=== PATIENT | male | born 1955 | race Caucasian/White ===

== ENCOUNTER → 2018-07-14 | Outpatient (CLI) | payer OTHER | LOC: COL.LAB 15:36 | DX: Z01.812 Encounter for preprocedural laboratory examination (principal) ==

== ENCOUNTER 2018-07-15 16:23 | Inpatient (IN) | payer OTHER ==
[~2018-07-15] VITALS: Ht 190.5 cm; Wt 92.5 kg
[2018-08-12] VITALS (12 sets, daily range): BP systolic 94–131; BP diastolic 50–81; PULSE 54–77; TEMP 97–98.7
[2018-08-12] MEDS ORDERED: LIPITOR 10MG10 MG PO (02:00)
[2018-08-12] MEDS ORDERED: CIALIS5 MG PO (02:00)
[2018-08-12] MEDS ORDERED: CELEBREX 200MG200 MG PO (02:00)
[2018-08-12] MEDS ORDERED: PRILOSEC 20MG20 MG PO (02:01)
[2018-08-12] MEDS ORDERED: ZANTAC 150MG T150 MG PO (02:01)
[2018-08-12] MEDS ORDERED: MULTI VITAMINS1 TAB PO (05:53)
--- NOTE | 2018-08-12 06:15 | NUR ---
arrived on unit at 0530, prepped for surgery without incident, explanation given for going to and returning from surgery to patient and his , verbalizes understanding
--- NOTE | 2018-08-12 10:50 | NUR ---
returned to room from PACU per bed, awake and alert, IV infusing and placed on pump at 125ml/hr, O2 on at 2L/NC, rico cath patent draining clear yellow urine, SCDS and DEBORAH hose on bilaterally, brace to left knee with ice on, has sensation to feet and is able to wiggle toes but still states has some tingling, full assessment completed, see intervenitons for further info, at bedside
--- NOTE | 2018-08-12 11:15 | NUR ---
rests between checks, takes scheduled tylenol
--- NOTE | 2018-08-12 12:00 | NUR ---
arests quietly and dozes between checks, awakens easily, states he just feels funny, when questioned stated he was feeling a little dizzy and aching to knee, medicated with roxicodone 10mg po, given crackers to eat to decrease chance of nausea
--- NOTE | 2018-08-12 13:00 | NUR ---
resting in bed with eyes closed
--- NOTE | 2018-08-12 13:30 | NUR ---
Dr Tovar in to see chandan
--- NOTE | 2018-08-12 14:15 | NUR ---
continues to c/o pain, brace loosened, medicated with morphine 3mg slow IV and also zofran 4mg to decrease chance of nausea, sitting up in bed to try and eat something, has some shivering and provided warm blanket, at bedside
--- NOTE | 2018-08-12 14:30 | NUR ---
had soup and tolerated well, states morphine has helped pain in left knee and thigh, will try now to take a nap
--- NOTE | 2018-08-12 16:29 | NUR ---
had a nap and is now awake and c/o pain to left knee and thigh, medicated with roxicodone 10mg and scheduled tylenol
--- NOTE | 2018-08-12 16:49 | NUR ---
SW met with the patient to discuss discharge plan. The patient lives in [place] with his , Kimberly. He reports independence with ADLs and does not have any DME. The patient's PCP is Dr. Dex Dowling in [place] and he receives his medications either through [facility] or the [facility] in [place]. He reports no difficulties obtaining his meds. The patient plans to return home with his upon discharge and receive outpatient therapy at [facility] on 08/17. SW to continue to follow for PT's recommendation of equipment needed.
--- NOTE | 2018-08-12 17:13 | NUR ---
sitting up in bed eating supper, continues to c/o pain/aching to left knee but is OK now and declines taking morphine
--- NOTE | 2018-08-12 18:50 | NUR ---
resting in bed watching TV, bedside shift report given to YOLANDA Calix
--- NOTE | 2018-08-12 19:40 | NUR ---
Assessment completed. Patient is A&O x 4. VSS. Patient reports having a lot of pain to left knee/thigh and is requesting prn IV Morphine at this time since he's not due for Oxycodone. Repositioned LLE, removed techol brace for comfort and applied an ice pack to knee/thigh. Pedal pulses intact. BLE david hose/scds on. Aquacell dressing to left knee is CDI. Encouraged ankle pumps while laying in bed. Holland catheter to DD with yellow clear urine draining. Tolerating diet with no c/o nausea. IVF infusing with intermittent antibiotic. Will ambulate with patient in the hallway when pain is better controlled this evening. Denies any concerns or needs at this time, call light is within reach.
--- NOTE | 2018-08-12 21:00 | NUR ---
Patient ambulated approximately 50 feet in the hallway with staff this evening with walker and gait belt, gait slow and steady. Technol brace applied after ambulating and repositioned patients LLE with toes above nose for elevation and comfort. has been at bedside. Denies any concerns or needs at this time.
[2018-08-13 00:14] VITALS: BP 139/76; PULSE 75; TEMP 98.1
--- NOTE | 2018-08-13 02:30 | NUR ---
Patient c/o left knee/upper thigh pain and requesting pain medication at this time, 5 mg of prn IV Morphine given for breakthrough. Patient reports that he has been able to get some rest for short periods at a time. Repositioned LLE and readjusted brace. Denies any other concerns or needs at this time.
[2018-08-13 05:17] VITALS: BP 158/71; BP 188/71; PULSE 68; TEMP 98.3
--- NOTE | 2018-08-13 06:05 | NUR ---
Patient has rested for short periods of time through the night. VSS. Scheduled Tylenol, prn Oxycodone given when available and 13 mg of prn IV Morphine given for breakthrough pain. Technol brace removed at this time. Aquacell dressing to left knee remains CDI. Assisted patient with repositioning to his right side with a pillow between his knees and a fresh ice pack on top of the knee at this time. Denies any concerns or needs at this time, call light remains within reach.
--- NOTE | 2018-08-13 06:30 | NUR ---
resting in bed on right side, bedside shift report received from YOLANDA Calix
[2018-08-13 06:44] LABS: HEMATOCRIT 42.4 % (42.0-52.0); HEMOGLOBIN 13.9 g/dl (13.5-18.0)
--- NOTE | 2018-08-13 08:04 | NUR ---
appears to be dozing and states is just now waking up, states pain is at a tolerable level now and that is good, medicated with hdyrocodone 7.5mg 2 tabs in anticipation of therapy, full assessment completed, see interventions for further info, will order breakfast
[2018-08-13 08:05] VITALS: BP 132/72; PULSE 86; TEMP 98.1
--- NOTE | 2018-08-13 09:26 | NUR ---
occupational therapy in to visit with patient
--- NOTE | 2018-08-13 10:00 | NUR ---
physical therapy in to work wiht patient, assisted with ambulating out in [place] and then back to room and into recliner
--- NOTE | 2018-08-13 10:50 | NUR ---
resting in recliner, medicated with roxicodoen 10mg po for c/os pain to left knee
[2018-08-13 12:10] VITALS: BP 128/69; PULSE 85; TEMP 98.4
--- NOTE | 2018-08-13 12:15 | NUR ---
states relief from pain pills given earlier, rico catheter discontinued, tolerated procedure well
--- NOTE | 2018-08-13 14:00 | NUR ---
SW met with the patient to discuss physical therapies recommendation of a front wheeled walker. The patient reports that his will be renting a walker from [email or web address]. No additional needs at this time.
--- NOTE | 2018-08-13 14:10 | NUR ---
ambulated back to room after therapy and resting in chair, stood and tried to void but was unable at this time, will call when he is ready to try again, denies needs or pain pills at this t lucian
[2018-08-13 15:40] VITALS: BP 132/71; PULSE 80; TEMP 97.7
--- NOTE | 2018-08-13 15:40 | NUR ---
resting in chair visiting with family, c/o pain to left knee, medicated with hydrocodone 7.5mg 2 tabs
--- NOTE | 2018-08-13 18:00 | NUR ---
resting in bed, waiting for supper
--- NOTE | 2018-08-13 18:52 | NUR ---
bedside shift report given to YOLANDA Bowden
[2018-08-13 20:00] VITALS: BP 121/70; PULSE 93; TEMP 98.4
--- NOTE | 2018-08-13 20:00 | NUR ---
Patient in bed resting. Alert and oriented x3. Shift assessment complete. Aquacel to left knee with scant drainage present. SCDs and Tedhose to BLE. Patient ambulated with walker and gait belt >100feet, Steady gait. States mild pain to left knee, will call when he needs pain meds. Denies further needs at this time.
[2018-08-14 04:58] VITALS: BP 150/71; PULSE 82; TEMP 99.5
[2018-08-14 06:16] LABS: HEMATOCRIT 37.6 % (42.0-52.0); HEMOGLOBIN 12.5 g/dl (13.5-18.0)
--- NOTE | 2018-08-14 06:23 | NUR ---
Patient has rested well through the night. Minimal needs. Has requested pain medication, given per orders. Denies further needs at this time. Denies pain at this time. Will report off to day shift.
[2018-08-14 07:23] VITALS: BP 138/69; PULSE 84; TEMP 98.5
--- NOTE | 2018-08-14 07:36 | NUR ---
DR AGARWAL IN TO SEE PT THIS AM. CONTINUE TO ALTERNATE PO PAIN MED Q 3-4 HRS PRN. PT REPORTING THAT [facility] DOES NOT WORK FOR HIM. ASSISTED PT UP TO RECLINER FOR BREAKFAST AND REFRESHED ICE BAG.
--- NOTE | 2018-08-14 09:12 | NUR ---
PT UP TO BR X2 VOIDED AND THEN OUT TO [facility] FOR THERAPY. PO MEDS GIVEN ORDERED. PT DOING WELL. PAIN DECREASES WITH SITTING UP IN RECLINER VS BED.
[2018-08-14 11:53] VITALS: BP 140/73; PULSE 79; TEMP 98.8
--- NOTE | 2018-08-14 15:07 | NUR ---
SHAWNA faxed clinical information to [facility] and called Mary who reports she will bring the walker tomorrow after order is signed by . SHAWNA informed patient and of this information.
[2018-08-14 16:00] VITALS: BP 123/72; PULSE 87; TEMP 98
--- NOTE | 2018-08-14 17:31 | NUR ---
PAIN MEDS OFFERED @ 1600 AND AGAIN AT 1700 PT DECLINED BOTH OFFERS.
[2018-08-14 19:42] VITALS: BP 132/75; PULSE 88; TEMP 98.5
--- NOTE | 2018-08-14 20:00 | NUR ---
Patient in bed resting. Alert and oriented x 3. Shift assessment complete. Aquacel to left knee CDI. Brace to left knee. Patient ambulating in room, stand by assist. Denies pain at this time. Denies further needs at this time.
[2018-08-15 03:16] VITALS: BP 147/70; PULSE 94; TEMP 98.5
--- NOTE | 2018-08-15 05:51 | NUR ---
Patient has rested well through the night, minimal needs. Has been up ambulating in room. Steady gait with walker. Up to chair this morining. Denies pain at this time. Denies further needs at this time.
[2018-08-15 07:28] VITALS: BP 117/79; PULSE 93; TEMP 97.8
--- NOTE | 2018-08-15 08:18 | NUR ---
Patient sitting up in chair this am. He did well breakfast-roxicodone for pain management per his request. L.knee airstrip dressing intact-teds ble. Patietn hopeful for discharge today. Will continue to monitor.
--- NOTE | 2018-08-15 09:12 | NUR ---
Patient up working with therapy
[2018-08-15] MEDS ORDERED: ASPI325T6 PO (09:43)
[2018-08-15] MEDS ORDERED: ROXICODONE 55 MG/TAB PO (09:44)
[2018-08-15] MEDS ORDERED: SENOKOT S 50 MG1 TAB PO (09:44)
--- NOTE | 2018-08-15 10:55 | NUR ---
Dr. Tovar rounded, orders obtained. Patient ready for discharge. Walker delivered. New dressing to L.knee-airstrip, minimal drainage noted to prior dressing. Patient & his family given all discharge teaching. We reviewed medication list, script for ASA, Roxicodone & senna sent with patient. We discussed activity & therapy. Abena lopez reviewed. Patient and his family deny questions of concerns. Patient wheeled out with all belongigns, his family taking him home
== END 2018-08-15 10:57 | disposition home or self-care (01) | DRG 470 ==
LOC: JCC 08-12 05:19
PROVIDERS: ADMIT Orthopaedic Surgery
PROC: 0SRD0J9 Replacement of Left Knee Joint with Synthetic Substitute, Cemented, Open Approach (ICD-10-PCS; principal; 2018-08-12 07:30)
DX: M17.12 Unilateral primary osteoarthritis, left knee (principal); E78.5 Hyperlipidemia, unspecified; Z87.891 Personal history of nicotine dependence; I10 Essential (primary) hypertension
CPT/HCPCS: A4314; A9284; C1713; C1776; J0690; J2250; J2270; J2405; J2704; J3010; J7030; J7120